=== PATIENT | female | born 1985 | race African-American/Black ===

== ENCOUNTER 2017-08-26 17:48 | Emergency (ER) | payer MEDICAID ==
[~2017-08-26] VITALS: Ht 162.6 cm; Wt 62.0 kg
[2017-08-26 17:55] VITALS: BP 170/111
[2017-08-26] MEDS ORDERED: CLONIDINE 0.1MG TABLET PO ONE (21:45)
[2017-08-26 22:00] LABS: BASOPHILS % 0.5 % (0.0-2.0); EOSINOPHILS % 6.1 % (0.0-5.0); HEMATOCRIT. 37.5 % (36.0-48.0); HEMOGLOBIN. 12.5 g/dL (12.0-16.0); LYMPHOCYTES % 27.5 % (20.0-50.0); MEAN CORPUSCULAR HEMOGLOBIN 31.7 pg (28.0-32.0); MEAN PLATELET VOLUME 10.2 fl (7.4-10.4); MONOCYTES % 9.2 % (2.0-8.0); NEUTROPHILS % 56.7 % (40.0-76.0); PLATELET 151 x1000/uL (130-400); RED BLOOD CELL COUNT 3.94 mill/uL (4.2-5.4)
[2017-08-26 22:11] LABS: HCG SCREEN NEGATIVE
[2017-08-26 22:12] LABS: CARBON DIOXIDE 26 mEq/L (21-32); CHLORIDE 103 mEq/L (98-107)
[2017-08-26 22:43] LABS: CLARITY URINE CLEAR (CLEAR); COLOR URINE YELLOW (YELLOW); KETONES URINE TRACE (NEGATIVE); LEUKOCYTE ESTERASE URINE 1+ (NEGATIVE); NITRITE URINE NEGATIVE (NEGATIVE); OCCULT BLOOD URINE 2+ (NEGATIVE); PH URINE 5.5 (4.5-8.0); PROTEIN URINE NEGATIVE (NEGATIVE); SPECIFIC GRAVITY URINE 1.015 (1.005-1.030); UROBILINOGEN URINE 0.2 E.U./dL (0.2-1.0)
== END 2017-08-26 23:55 | disposition home or self-care (01) ==
LOC: ER 18:02
DX: I10 Essential (primary) hypertension (principal); F17.200 Nicotine dependence, unspecified, uncomplicated
CPT/HCPCS: 36415; 80053; 81001; 84703; 85025; 87086; 93005; 99285